=== PATIENT | male | born 1960 | race Asian ===

== ENCOUNTER 2019-08-22 07:08 | Day surgery (SDC) | payer OTHER ==
[~2019-08-22] VITALS: Ht 167.6 cm; Wt 98.9 kg
[2019-08-22] MEDS ORDERED: fentaNYL 0.05 MG/ML VIAL ONE (10:37)
[2019-08-22] MEDS ORDERED: LIDOCAINE 2% 100 MG/5 ML UJET TP ONE (10:37)
[2019-08-22] MEDS ORDERED: fentaNYL 0.05 MG/ML VIAL IVP ONE (12:05)
[2019-08-22] MEDS ORDERED: fentaNYL 0.05 MG/ML VIAL IVP SCH (12:30)
== END 2019-08-22 11:37 | disposition home or self-care (01) ==
LOC: MOR 07:08 → MMU 07:15 → MOR 11:37
PROVIDERS: ATTEND Internal Medicine Gastroenterology
DX: R14.0 Abdominal distension (gaseous) (principal); K92.1 Melena; E66.9 Obesity, unspecified; E78.00 Pure hypercholesterolemia, unspecified; Z68.35 Body mass index [BMI] 35.0-35.9, adult
CPT/HCPCS: 45378; J3010